=== PATIENT | female | born 1990 | race Caucasian/White ===

== ENCOUNTER 2022-04-11 07:45 | Inpatient (IN) | payer MEDICAID ==
[~2022-04-11] VITALS: Ht 152.4 cm; Wt 73.5 kg
[2022-04-11] MEDS ORDERED: ZOLPIDEM TARTRATE 10 MG TABLET PO PRN (08:45)
[2022-04-11 10:11] VITALS: BP 152/89
[2022-04-11] MEDS: LORazepam 2 MG TABLET PO PRN ×3 (10:30→21:41)
[2022-04-11] MEDS: ESCITALOPRAM OXALATE 10 MG TABLET PO SCH (12:20)
[2022-04-11] MEDS: CEPHALEXIN MONOHYDRATE 500 MG CAPSULE PO SCH ×2 (14:02→16:58)
[2022-04-11 17:01] VITALS: BP 119/64
[2022-04-11 20:26] VITALS: BP 101/64
[2022-04-11 21:41] VITALS: BP 125/76
[2022-04-12] MEDS: LORazepam 2 MG TABLET PO PRN ×3 (06:05→14:38)
[2022-04-12 08:06] LABS: BASOPHILS % (AUTO) 0.3 % (0.0-2.0); EOSINOPHILS % (AUTO) 2.8 % (1.0-6.0); HEMATOCRIT 38.9 % (36-46); HEMOGLOBIN 13.1 g/dL (12.0-16.0); LYMPHOCYTES # (AUTO) 2.8 K/uL (1.0-4.8); LYMPHOCYTES % (AUTO) 35.1 % (22.0-44.0); MEAN CORPUSCULAR HEMOGLOBIN 30.2 pg (26.0-34.0); MEAN CORPUSCULAR HGB CONC 33.6 G/dL (31.0-37.0); MEAN CORPUSCULAR VOLUME 90 fL (80-100); MONOCYTES # (AUTO) 0.6 K/uL (0.1-1.0); MONOCYTES % (AUTO) 7.9 % (2.0-9.0); NEUTROPHILS # (AUTO) 4.3 K/uL (1.8-7.7); NEUTROPHILS % (AUTO) 53.9 % (40.0-70.0); PLATELET COUNT (AUTO) 300 K/uL (150-450); RED BLOOD CELL COUNT(AUTO) 4.33 MIL/uL (4.00-5.20); RED CELL DISTRIBUTION WIDTH 13.4 % (11.5-14.5)
[2022-04-12 08:37] VITALS: BP 106/68
[2022-04-12 08:38] LABS: ALANINE AMINOTRANSFERASE 32 U/L (12-78); ALBUMIN 3.6 g/dL (3.4-5.0); ALKALINE PHOSPHATASE 81 U/L (46-116); ANION GAP 9 mmol/L (8-16); ASPARTATE AMINOTRANSFERASE 17 U/L (15-37); BILIRUBIN,TOTAL 0.4 mg/dL (0.1-1.0); CALCIUM, TOTAL 8.9 mg/dL (8.8-10.5); CARBON DIOXIDE 25 mmol/L (22-29); CHLORIDE 105 mmol/L (98-107); CHOL/HDL RATIO 3.8 (3.9-5.7); CHOLESTEROL 219 mg/dL (131-200); CREATININE 0.79 mg/dL (0.60-1.30); GLOMERULAR FILTR. RATE CALC > 60 mL/min (>60); GLUCOSE,RANDOM 81 mg/dL (70-110); HCG,QUANTITATIVE < 1 mIU/mL (0-6); HDL CHOLESTEROL 57 mg/dL (40-60); LDL CHOL (CALC.) 148 mg/dL (0-130); POTASSIUM 3.7 mmol/L (3.5-5.1); SODIUM SERUM 139 mmol/L (136-145); THYROID STIMULATING HORMONE 0.52 uIU/mL (0.36-3.74); TOTAL PROTEIN, SERUM 6.8 g/dL (6.4-8.2); TRIGLYCERIDES 68 mg/dL (15-150); UREA NITROGEN, BLOOD 16 mg/dL (7-18)
[2022-04-12] MEDS: CEPHALEXIN MONOHYDRATE 500 MG CAPSULE PO SCH ×3 (08:45→16:32)
[2022-04-12] MEDS: ESCITALOPRAM OXALATE 10 MG TABLET PO SCH (08:45)
[2022-04-12] MEDS ORDERED: MAG HYDROX/AL HYDROX/SIMETH ES 30 ML SUSPENSION UDCUP PO PRN (11:15)
[2022-04-12] MEDS ORDERED: CloNIDine HCL 0.1 MG TABLET PO PRN (11:15)
[2022-04-12] MEDS ORDERED: ALBUTEROL SULFATE HFA 90 MCG/PUFF 8 GM INHALER IH PRN (11:15)
[2022-04-12] MEDS ORDERED: ONDANSETRON HCL 4 MG TABLET PO PRN (11:15)
[2022-04-12] MEDS ORDERED: GuaiFENesin/D-METHORPHAN [SUGAR-FREE] 200-20MG/10 ML SYRUP UDCUP PO PRN (11:15)
[2022-04-12] MEDS ORDERED: IBUPROFEN 400 MG TABLET PO PRN (11:15)
[2022-04-12] MEDS ORDERED: PETROLATUM,WHITE 28 GM JELLY TP PRN (11:15)
[2022-04-12] MEDS ORDERED: DOCUSATE SODIUM 100 MG CAPSULE PO PRN (11:15)
[2022-04-12] MEDS ORDERED: LOPERAMIDE HCL 2 MG CAPSULE PO PRN (11:15)
[2022-04-12] MEDS ORDERED: MAGNESIUM HYDROXIDE SUSPENSION 30 ML UDCUP PO PRN (11:15)
[2022-04-12] MEDS ORDERED: ACETAMINOPHEN 325 MG TABLET PO PRN (11:15)
[2022-04-12] MEDS ORDERED: NICOTINE 14 MG/24 HOUR PATCH TD PRN (11:15)
[2022-04-12 12:52] VITALS: BP 106/68
[2022-04-12 16:12] VITALS: BP 100/69
[2022-04-12] MEDS: HALOPERIDOL 5 MG TABLET PO PRN (18:40)
[2022-04-12] MEDS: DiphenhydrAMINE HCL 50 MG CAPSULE PO SCH (20:46)
[2022-04-12 21:45] VITALS: BP 109/65
[2022-04-13 07:14] LABS: ALANINE AMINOTRANSFERASE 32 U/L (12-78); ALBUMIN 3.4 g/dL (3.4-5.0); ALKALINE PHOSPHATASE 79 U/L (46-116); ANION GAP 8 mmol/L (8-16); ASPARTATE AMINOTRANSFERASE 14 U/L (15-37); BILIRUBIN,TOTAL 0.3 mg/dL (0.1-1.0); CALCIUM, TOTAL 8.8 mg/dL (8.8-10.5); CARBON DIOXIDE 24 mmol/L (22-29); CHLORIDE 107 mmol/L (98-107); GLUCOSE,RANDOM 87 mg/dL (70-110); SODIUM SERUM 139 mmol/L (136-145); TOTAL PROTEIN, SERUM 6.6 g/dL (6.4-8.2); UREA NITROGEN, BLOOD 13 mg/dL (7-18)
[2022-04-13 07:15] LABS: GLOMERULAR FILTR. RATE CALC > 60 mL/min (>60)
[2022-04-13] MEDS: ESCITALOPRAM OXALATE 10 MG TABLET PO SCH (08:15)
[2022-04-13] MEDS: CEPHALEXIN MONOHYDRATE 500 MG CAPSULE PO SCH ×3 (08:15→16:39)
[2022-04-13] MEDS: LORazepam 1 MG TABLET PO PRN ×2 (11:00→17:09)
[2022-04-13] MEDS: DiphenhydrAMINE HCL 50 MG CAPSULE PO SCH (20:04)
[2022-04-13 20:20] VITALS: BP 105/70
[2022-04-14] MEDS: CEPHALEXIN MONOHYDRATE 500 MG CAPSULE PO SCH ×3 (08:03→16:11)
[2022-04-14] MEDS: LORazepam 1 MG TABLET PO PRN ×2 (08:03→18:05)
[2022-04-14] MEDS: ESCITALOPRAM OXALATE 10 MG TABLET PO SCH (08:03)
[2022-04-14 08:09] VITALS: BP 134/83
[2022-04-14 20:13] VITALS: BP 100/68
[2022-04-14] MEDS: DiphenhydrAMINE HCL 50 MG CAPSULE PO SCH (20:20)
[2022-04-15] MEDS: LORazepam 1 MG TABLET PO PRN ×3 (06:41→19:21)
[2022-04-15 08:08] VITALS: BP 101/62
[2022-04-15] MEDS: CEPHALEXIN MONOHYDRATE 500 MG CAPSULE PO SCH ×3 (08:44→16:33)
[2022-04-15] MEDS: ESCITALOPRAM OXALATE 10 MG TABLET PO SCH (08:44)
[2022-04-15 20:17] VITALS: BP 107/76
[2022-04-15] MEDS: DiphenhydrAMINE HCL 50 MG CAPSULE PO SCH (20:31)
[2022-04-16] MEDS: LORazepam 1 MG TABLET PO PRN ×3 (06:39→19:58)
[2022-04-16 08:34] VITALS: BP 119/67
[2022-04-16] MEDS: CEPHALEXIN MONOHYDRATE 500 MG CAPSULE PO SCH ×2 (08:53→12:38)
[2022-04-16] MEDS: ESCITALOPRAM OXALATE 10 MG TABLET PO SCH (08:53)
[2022-04-16 09:02] LABS: GLUCOMETER DEV NAME(LOC) POC.BV
[2022-04-16 17:42] VITALS: BP 120/77
[2022-04-16 20:35] VITALS: BP 123/62
[2022-04-16] MEDS: DiphenhydrAMINE HCL 50 MG CAPSULE PO SCH (21:01)
[2022-04-17 04:38] VITALS: BP 117/87
[2022-04-17] MEDS: LORazepam 1 MG TABLET PO PRN ×3 (04:43→18:54)
[2022-04-17] MEDS: ESCITALOPRAM OXALATE 10 MG TABLET PO SCH (08:37)
[2022-04-17] MEDS: HALOPERIDOL 5 MG TABLET PO PRN ×2 (08:43→20:09)
[2022-04-17 08:53] VITALS: BP 102/71
[2022-04-17] MEDS: DiphenhydrAMINE HCL 50 MG CAPSULE PO SCH (20:09)
[2022-04-17 20:19] VITALS: BP 106/62
[2022-04-18 08:33] VITALS: BP 102/78
[2022-04-18] MEDS: LORazepam 1 MG TABLET PO PRN ×2 (09:01→15:07)
[2022-04-18] MEDS: ESCITALOPRAM OXALATE 20 MG TABLET PO SCH (09:02)
[2022-04-18] MEDS ORDERED: ZOLPIDEM TARTRATE 10 MG TABLET PO PRN (10:45)
[2022-04-18] MEDS: HALOPERIDOL 5 MG TABLET PO PRN (18:27)
[2022-04-18] MEDS: DiphenhydrAMINE HCL 50 MG CAPSULE PO SCH (20:12)
[2022-04-18 20:14] VITALS: BP 109/77
[2022-04-19 05:30] VITALS: BP 104/58
[2022-04-19] MEDS: ESCITALOPRAM OXALATE 20 MG TABLET PO SCH (08:09)
[2022-04-19] MEDS: LORazepam 1 MG TABLET PO PRN ×2 (08:09→14:24)
[2022-04-19 08:17] VITALS: BP 109/66
[2022-04-19] MEDS: DiphenhydrAMINE HCL 50 MG CAPSULE PO SCH (20:07)
[2022-04-19 21:13] VITALS: BP 111/78
[2022-04-20 06:02] VITALS: BP 103/84
[2022-04-20] MEDS: LORazepam 1 MG TABLET PO PRN ×3 (06:07→18:58)
[2022-04-20] MEDS: ESCITALOPRAM OXALATE 20 MG TABLET PO SCH (08:17)
[2022-04-20 08:37] VITALS: BP 100/58
[2022-04-20] MEDS: DiphenhydrAMINE HCL 50 MG CAPSULE PO SCH (20:03)
[2022-04-20 21:18] VITALS: BP 109/70
[2022-04-21] MEDS: LORazepam 1 MG TABLET PO PRN ×3 (06:06→18:40)
[2022-04-21 08:18] VITALS: BP 100/65
[2022-04-21] MEDS: ESCITALOPRAM OXALATE 20 MG TABLET PO SCH (08:27)
[2022-04-21] MEDS: DiphenhydrAMINE HCL 50 MG CAPSULE PO SCH (20:07)
[2022-04-21 20:17] VITALS: BP 104/71
[2022-04-21 22:56] LABS: GLUCOMETER DEV NAME(LOC) POC.BV
[2022-04-22] MEDS: LORazepam 1 MG TABLET PO PRN ×3 (04:49→18:45)
[2022-04-22 08:32] VITALS: BP 98/64
[2022-04-22] MEDS: ESCITALOPRAM OXALATE 20 MG TABLET PO SCH (09:18)
[2022-04-22] MEDS: DiphenhydrAMINE HCL 50 MG CAPSULE PO SCH (20:33)
[2022-04-22 20:44] VITALS: BP 99/68
[2022-04-23] MEDS: LORazepam 1 MG TABLET PO PRN (05:16)
[2022-04-23 08:36] VITALS: BP 100/60
[2022-04-23] MEDS: ESCITALOPRAM OXALATE 20 MG TABLET PO SCH (09:02)
[2022-04-23] MEDS ORDERED: ESCI20TA87 PO (11:37)
[2022-04-23] MEDS ORDERED: DIPH50 PO (11:37)
== END 2022-04-23 13:25 | disposition home or self-care (01) | DRG 751 ==
LOC: B2S 09:34
PROVIDERS: ADMIT Psychiatry & Neurology Child & Adolescent Psychiatry; ATTEND Psychiatry & Neurology Child & Adolescent Psychiatry
DX: F33.2 Major depressive disorder, recurrent severe without psychotic features (principal); E66.9 Obesity, unspecified; F10.20 Alcohol dependence, uncomplicated; F20.9 Schizophrenia, unspecified; F41.9 Anxiety disorder, unspecified; Z20.822 Contact with and (suspected) exposure to COVID-19; Z79.899 Other long term (current) drug therapy; Z68.31 Body mass index [BMI] 31.0-31.9, adult
CPT/HCPCS: 80053; 80061; 83036; 84436; 84439; 84443; 84702; 85025; 86592; 87081; G0480